=== PATIENT | female | born 1955 | race Caucasian/White ===

== ENCOUNTER → 2020-06-01 | Outpatient (CLI) | payer OTHER ==
--- NOTE | 2020-06-01 15:38 | REP ---
INDICATION: PAIN IN RIGHT KNEE. COMPARISON: None. TECHNIQUE: Five views FINDINGS: Medial, lateral and patellofemoral joint compartments are without narrowing. There is no suprapatellar joint effusion, fracture or loose body. Small marginal osteophytes at the medial and lateral joint margins involving the tibial plateau. IMPRESSION: Minimal degenerative changes without visible fracture, joint space narrowing, joint effusion or focal bone lesion. <Electronically signed by Jonyn Miner > 06/01/20 [id number]
== END ==
LOC: M ADAMS 09:52
DX: M25.561 Pain in right knee (principal)

== ENCOUNTER → 2020-09-12 | Outpatient (CLI) | payer OTHER ==
--- NOTE | 2020-09-12 15:56 | REP ---
INDICATION: ABN MAMMO RT BREAST,STEREOTACTIC BIOPSY. COMPARISON: None. TECHNIQUE: The procedure was performed under the general supervision of Dr. Agudelo. The risks and benefits of the procedure were explained to the patient and informed consent was obtained. The patient has a history of a new density in the inner aspect of the right breast near the 3 o'clock position seen on a previous mammogram dated 08/16/2020. A craniocaudal approach was utilized. The nodule was localized using stereotactic mammographic guidance. 1% Xylocaine was used as a local anesthetic. An 10 gauge, suction assisted Mammotome needle was inserted and 10 core biopsy samples were obtained. Specimen radiograph demonstrates the presence of calcifications to be within the specimen. A marker clip(HydroMARK shape 1) was placed at the biopsy site. The patient tolerated the procedure well and there were no immediate complications. After the appropriate amount of monitored convalescence, the patient was discharged from the department. FINDINGS: None IMPRESSION: Stereotactic right breast biopsy with marker clip placement (HydroMARK shape 1) <Electronically signed by Adrian Carter > 09/12/20 152 <Electronically signed by Josef Agudelo > 09/12/20 1711
[2020-09-12 16:49] VITALS: BP 138/76
--- NOTE | 2020-09-12 17:07 | REP ---
INDICATION: R92.8 ABN MAMMO RT BREAST,POST STEREOTACTIC BIOPSY. Marker clip placement views. COMPARISON: Comparison mammography 07/25/2020 and 08/16/2020. TECHNIQUE: Craniocaudal and mediolateral views of the right breast are obtained. FINDINGS: Craniocaudal and mediolateral views of the right breast demonstrate the needle biopsy marker clip in good position at the site where prior mammography showed small soft tissue nodule. There is some soft tissue density post biopsy. The nodule is not visible possibly obscured by the soft tissue edema. IMPRESSION: Marker clip in good position. <Electronically signed by Josef Agudelo > 09/12/20 1797
== END ==
LOC: M WHCPRO 11:45
PROVIDERS: ATTEND Surgery
DX: N60.11 Diffuse cystic mastopathy of right breast (principal); R92.8 Other abnormal and inconclusive findings on diagnostic imaging of breast

== ENCOUNTER → 2020-10-12 | Outpatient (CLI) | payer OTHER ==
--- NOTE | 2020-10-12 11:02 | REP ---
INDICATION: R92.8 ABN MAMMO/RIGHT. Patient is status post stereotactic needle biopsy for a nodular density medially position in the right breast on September 12, 2020, 1 month ago. Histologic result was not felt to be concordant with the mammographic findings. Short interval follow-up. COMPARISON: Comparison mammography and sonography August 16, 2020. Comparison mammography July 25, 2020 and June 28, 2019. Marker clip placement mammographic views are reviewed from 12 September 2020. TECHNIQUE: Routine views of the right breast are augmented by magnified focal spot-compression images and 3D tomography. Targeted right breast ultrasound is performed in the medial aspect. This mammogram was interpreted with the aid of an FDA-approved computer-aided detection system. FINDINGS: Scattered fibroglandular elements are noted. There is a nodular opacity adjacent to the marker clip in the medial aspect of the right breast at approximately 3 o'clock position. This appears more prominent than it did on the pre biopsy images of 16 August 2020. Margins are irregular. 10 x 12 x 15 mm today. previously 6 x 7 x 6 mm mammographically. Post biopsy marker clip placement views did show evidence of a hematoma which was arguable E larger than the density visible today. The findings are nonspecific. The Volpara volumetric breast density pattern is b. Targeted ultrasound: Targeted right breast sonography demonstrates a hypoechoic irregular area at 3 o'clock in the right breast 5 cm from the nipple measuring 16 x 7 x 8 mm. This is felt to account for the current mammographic opacity. I note that on pre biopsy ultrasound there was no identifiable ultrasound correlate to the mammographic finding. IMPRESSION: Nonspecific findings. Given that there has only been 1 month of elapsed time since the biopsy, the findings most likely represent residual post biopsy hematoma. It is difficult to exclude progressive enlargement of a nodule. Ultrasound-guided needle biopsy or ultrasound directed needle localization excisional biopsy could be considered since there is an ultrasound correlate to the mammographic opacity. Failing this, short interval follow-up mammographically and sonographically should continue. BI-RADS category is still felt to be best assigned as category 4 suspicious right breast imaging. This patient's [facility] lifetime breast cancer risk assessment score is 11.2%. RECOMMENDATION: Ultrasound-guided needle biopsy or localization directed excisional biopsy should be considered.. The patient letter being requested is M4. <Electronically signed by Josef Agudelo > 10/12/20 [id number]
== END ==
LOC: M WHC 08:56
PROVIDERS: ATTEND Surgery
DX: R92.8 Other abnormal and inconclusive findings on diagnostic imaging of breast (principal)
CPT/HCPCS: 76642; 77065; G0279

== ENCOUNTER → 2020-10-24 | Outpatient (CLI) | payer OTHER ==
[~2020-10-24] MED LIST: METO1TAB87 PO
--- NOTE | 2020-10-25 04:25 | REPPI ---
INDICATION: Z01.818 PRE OP EVALUATION COMPARISON: None. TECHNIQUE: PA and lateral. FINDINGS: The mediastinum and cardiac silhouette are normal. The lung english are clear and without acute consolidation, effusion, or pneumothorax. The skeletal structures are intact and normal. IMPRESSION: No acute cardiopulmonary process. <Electronically signed by Ricardo Short > 10/25/20 0428
== END ==
LOC: M PLAIMG 14:28
PROVIDERS: ATTEND Surgery
DX: Z01.818 Encounter for other preprocedural examination (principal)

== ENCOUNTER → 2020-10-26 | Outpatient (CLI) | payer OTHER | LOC: M LABSMTC 11:44 | PROVIDERS: ATTEND Anesthesiology | DX: Z01.818 Encounter for other preprocedural examination (principal); Z20.822 Contact with and (suspected) exposure to COVID-19 ==

== ENCOUNTER 2020-10-31 06:21 | Day surgery (SDC) | payer OTHER ==
[~2020-10-31] VITALS: Ht 157.5 cm; Wt 88.0 kg
[~2020-10-31 06:21] MED LIST changes: +HEPARIN SOD (PORCINE) 5000UNITS/ML 1ML VIAL/SYRINGE SQ ONE; +LIDOCAINE 1% MDV 20ML VIAL SQ PRN; +LR 1,000 ML IV ONE; +ceFAZolin SOD 2 GM in IV 1 EA IV ONE
[2020-10-31] MEDS ORDERED: BUPIVACAINE HCL 0.25% 10ML VIAL As Ordered ONE (07:13)
[2020-10-31] MEDS ORDERED: LIDOCAINE 1% MDV 20ML VIAL As Ordered ONE (07:13)
[2020-10-31] MEDS ORDERED: propofoL 200 MG/20 ML VIAL As Ordered ONE (07:18)
[2020-10-31] MEDS ORDERED: MIDAZOLAM INJ 2MG/2ML VIAL (J2250 PER 1MG) As Ordered ONE (07:18)
[2020-10-31] MEDS ORDERED: LIDOCAINE 2% 100MG/5ML SDV (FOR ANES.) As Ordered ONE (07:18)
[2020-10-31] MEDS ORDERED: ROCURONIUM BROMIDE 50 MG/5 ML VIAL As Ordered ONE (07:18)
[2020-10-31] MEDS ORDERED: fentaNYL 100 MCG/2 ML INJECTION (J3010) As Ordered ONE (07:18)
[2020-10-31] MEDS ORDERED: dexameTHASONE 4 MG/ML 1ML VIAL (J1100 PER 1MG) As Ordered ONE (07:44)
[2020-10-31] MEDS ORDERED: SUGAMMADEX SODIUM 500 MG/5 ML VIAL (BRIDION) As Ordered ONE (07:56)
[2020-10-31] MEDS ORDERED: METOCLOPRAMIDE INJ 10MG/2ML VIAL (J2765 PER 1) As Ordered ONE (07:56)
[2020-10-31] MEDS ORDERED: KETOROLAC 60MG 2ML VIAL As Ordered ONE (07:56)
[2020-10-31] MEDS ORDERED: ACETAMINOPHEN 1000MG 100ML IV BTL (OFIRMEV) (J0131 PER 10MG) As Ordered ONE (07:56)
[2020-10-31] MEDS ORDERED: ONDANSETRON 4MG/2ML VIAL As Ordered ONE (07:56)
[2020-10-31] MEDS ORDERED: PHENYLephrine 500MCG 5ML (100MCG/ML) SYRINGE As Ordered ONE (08:47)
[2020-10-31] MEDS ORDERED: ULTR50TA8 PO (09:20)
[2020-10-31] MEDS ORDERED: oxyCODONE 5MG TAB PO PRN (09:30)
[2020-10-31] MEDS ORDERED: LR 1,000 ML IV SCH (09:30)
[2020-10-31] MEDS ORDERED: fentaNYL 100 MCG/2 ML INJECTION (J3010) IV PRN (09:30)
[2020-10-31] MEDS ORDERED: ONDANSETRON 4MG/2ML VIAL IV PRN (09:30)
[2020-10-31 11:01] VITALS: BP 149/77
--- NOTE | 2020-10-31 12:10 | REP ---
INDICATION: RIGHT BREAST DISCORDANT PATHOLOGY RESULTS. COMPARISON: Mammogram and ultrasound 10/12/2020. TECHNIQUE: Ultrasound guidance provided for Dr. Lopez for wire localization of right breast nodule at 3 o'clock. FINDINGS: Ultrasound guidance provided for Dr. Lopez for wire localization of right breast nodule at 3 o'clock. IMPRESSION: Ultrasound guidance provided for Dr. Lopez for wire localization of right breast nodule at 3 o'clock. <Electronically signed by Zac Russo > 10/31/20 0187
--- NOTE | 2020-10-31 17:18 | REP ---
INDICATION: RIGHT BREAST DISCORDANT PATHOLOGY RESULTS. COMPARISON: 10/12/2020. TECHNIQUE: Two specimen radiographs performed. FINDINGS: Irregular nodule is seen in the specimen containing a biopsy clip. Closest margin of the nodule to the edge of the specimen is 6 mm. IMPRESSION: Irregular nodule is within the surgical specimen. RECOMMENDATION: Clinical follow-up. <Electronically signed by Zac Russo > 10/31/20 2859
--- NOTE | 2020-11-01 11:56 | ROOPDOC ---
[facility] Report Of Operation Report of Operation DATE OF PROCEDURE: 10/31/20 PREPROCEDURE DIAGNOSES: . POSTPROCEDURE DIAGNOSES: . PROCEDURE: . SURGEON: , PERSONAL LINES SALES EXECUTIVE: , ANESTHESIA: . ESTIMATED BLOOD LOSS: Approximately mL. COMPLICATIONS: . REMARKS: . PROCEDURE NOTE: . DESCRIPTION OF PROCEDURE: . JANAY LEDEZMA DO Nov 01, 2020 11:56
--- NOTE | 2020-11-02 21:35 | ROOPDOC ---
[facility] Report Of Operation Report of Operation DATE OF PROCEDURE: 10/31/20 PREPROCEDURE DIAGNOSES: right breast discordant pathology POSTPROCEDURE DIAGNOSES: right breast discordant pathology PROCEDURE: Right breast excisional biopsy with intraop wire placement SURGEON: Janay Ledezma ANESTHESIA: general ESTIMATED BLOOD LOSS: minimal COMPLICATIONS: none REMARKS: clip and the wire seen in the specimen DESCRIPTION OF PROCEDURE: INDICATIONS: Ms. Pratibha Niño is [id number] woman who was found to have a suspicious right breast nodule on screening mammogram. This was evaluated with US and no sonographic correlate was found. Stereotactic biopsy of the nodule was done by radiology and pathology results were benign. The results were discordant with the imaging per radiology review. Right breast excisional biopsy with intraoperative wire placement was recommended. Patient developed postbiopsy hematoma which made it difficult to assess the location of the possible nodule. She was medically cleared for surgery by her primary care doctor. Risks and possible complications of surgical procedure including bleeding, infection and injury to surrounding structures were explained to the patient and she wished to proceed. Consent was signed. My initials were placed on the operative site. Subcutaneous injection of 5000 units of heparin was done. DETAILS: Patient was taken to the operating room and placed on the operating room table. A sign in was called stating patients name, date of and the procedure to be done. Preoperative antibiotics were infused. Smooth induction of general anesthesia was done. Patients hands were extended on arm rests. Care was taken not to over extend the arms. Pillow was placed under the knees and a foam was placed under the heels. Sequential compression devices were placed and assured to function correctly. Procedure was started with right breast intraop wire localization. Appropriate time out was done and patients name, date of , and the procedure to be done were confirmed. Right breast was cleaned by me. Intraoperative ultrasound was used to confirm location of the Hydromark clip and hematoma. Location of the clip was marked on the skin as well. 21 G Kopans Breast Lesion Localization Needle was used to place 25 cm wire. The wire was placed next to the clip. The end of the wire was passed slightly distal to the clip. The images were captured confirming adequate placement of the localizing wire. Manager Of Learning assisted with the wire placement. Next, patients right breast and axilla were prepped and draped in the usual fashion. Care was taken not to displace the wire. Appropriate time out was done again prior second part of the procedure. Patients name, date of , and the procedure to be done were confirmed. Next, local anesthetic using 1% lidocaine and 0.25 % Marcaine 50/50 mix was injected at the site of planned periareolar incision. The incision was made with the scalpel. Subcutaneous skin flaps were raised and the guide wire was carefully pulled into the wound. Dissection was carries along the wire until the previously marked on the skin area of target lesion location was encountered. At this point, wider excision of the tissue surrounding the wire was done. The Hydromark clip was identified in the tissue with intraoperative hockey stick ultrasound probe. The end of the wire was identified with palpation. The excisional biopsy specimen was carefully removed from the breast keeping its proper orientation and moved to the back table where margins were marked with the surgical inking kit following the standard colors recommendations. Specimen was then placed on the grid and placed in [employer] Specimen Imaging System. The image revealed the wire and the Hydromark in the specimen. The specimen was labeled with patients name and right excisional biopsy and sent to pathology. Next, the wound was irrigated thoroughly and adequate hemostasis was assured. Additional local anesthetic was injected into surrounding tissues. space was approximated with 2-0 Vicryl. The dermis was closed with 3-0 Vicryl and skin was closed with 4-0 Monocryl. Surgical glue was placed over the incision. Patient emerged from the anesthesia without any problems. Fluffs were placed over the operative site and patients chest was wrapped snuggly in the ROBYN wrap. Sponge and instrument counts were done and were correct. Patient tolerated procedure well and was taken to recovery unit in stable condition. JANAY LEDEZMA DO Nov 02, 2020 21:35
== END 2020-10-31 11:34 | disposition home or self-care (01) ==
LOC: M SDC 06:21
PROVIDERS: ATTEND Surgery
DX: N60.11 Diffuse cystic mastopathy of right breast (principal); N64.1 Fat necrosis of breast; I10 Essential (primary) hypertension; Z80.3 Family history of malignant neoplasm of breast; Z79.899 Other long term (current) drug therapy
CPT/HCPCS: 19125; 36415; 76942; 86850; 86900; 86901; 88307; J0131; J0690; J1100; J1644; J1885; J2250; J2370; J2405; J2765; J3010

== ENCOUNTER → 2021-07-26 | Outpatient (CLI) | payer OTHER ==
[~2021-07-26] MED LIST changes: -HEPARIN SOD (PORCINE) 5000UNITS/ML 1ML VIAL/SYRINGE SQ ONE; -LIDOCAINE 1% MDV 20ML VIAL SQ PRN; -LR 1,000 ML IV ONE; +ULTR50TA8 PO; -ceFAZolin SOD 2 GM in IV 1 EA IV ONE
--- NOTE | 2021-07-26 10:24 | REPMRS ---
Patient History The patient states she had a clinical breast exam in November 2020. Family history of breast cancer in paternal grandmother. Benign radio exam breast specimen of the right breast, October 31, 2020. Benign stereotatic loc for ea lesion. of the right breast, September 12, 2020. Took hormonal contraceptives for 6 months. Tomosynthesis is performed. Volpara breast density is b. [facility] of [facility] 10.8%. No breast complaints today Patient signed the MRS sheet 1st vaccine 10/0471-Edfibc-hxge arm 2nd vaccine 10/25-left arm Patient states she has had a 25lb intentional weight loss in the past year Priors on PACS Patient Identification Verified Digital Woman Screen Mammo: July 26, 2021 - Exam #: [id number] Bilateral CC and MLO view(s) were taken. Technologist: Addie Oliveros, Technologist Prior study comparison: October 12, 2020, right breast diagnostic unilateral mammo performed at [facility]. FINDINGS: There are scattered fibroglandular densities. There has been no change in the appearance of the mammogram from the prior studies. There is a mild amount of residual fibroglandular tissue which is fairly symmetric. There is no interval development of dominant mass, architectural distortion, or clustered microcalcification suggestive of malignancy. Assessment: BI-RADS/ACR category 1 mammogram. Negative Mammogram. Recommendation Routine screening mammogram in 1 year (for women over age 40). This mammogram was interpreted with the aid of an FDA-approved computer-aided dectection system. Electronically Signed By: Zac Russo MD 07/26/21 1024
== END ==
LOC: M WHC 08:53
PROVIDERS: ATTEND Surgery
DX: R92.8 Other abnormal and inconclusive findings on diagnostic imaging of breast (principal); Z80.3 Family history of malignant neoplasm of breast

== ENCOUNTER → 2022-07-31 | Outpatient (CLI) | payer MEDICARE | LOC: M WHC 08:52 | PROVIDERS: ATTEND Nurse Practitioner Family | DX: Z12.31 Encounter for screening mammogram for malignant neoplasm of breast (principal) ==

== ENCOUNTER → 2022-10-14 | Outpatient (CLI) | payer MEDICARE | LOC: M LABSMTC 07:44 | PROVIDERS: ATTEND Anesthesiology | DX: Z01.818 Encounter for other preprocedural examination (principal); Z11.52 Encounter for screening for COVID-19 ==

== ENCOUNTER 2022-10-18 08:05 | Day surgery (SDC) | payer MEDICARE ==
[~2022-10-18] VITALS: Ht 157.5 cm; Wt 83.4 kg
[~2022-10-18 08:05] MED LIST changes: +NS 1,000 ML IV ONE
[2022-10-18] MEDS ORDERED: propofoL 200 MG/20 ML VIAL As Ordered ONE ×2 (08:46→09:11)
[2022-10-18 09:58] VITALS: BP 171/76
== END 2022-10-18 10:04 | disposition home or self-care (01) ==
LOC: M OPP 08:05
PROVIDERS: ATTEND Surgery
DX: Z12.11 Encounter for screening for malignant neoplasm of colon (principal); D12.4 Benign neoplasm of descending colon; K57.30 Diverticulosis of large intestine without perforation or abscess without bleeding; I10 Essential (primary) hypertension; Z79.899 Other long term (current) drug therapy

== ENCOUNTER → 2023-08-25 | Outpatient (REF) | payer MEDICARE ==
[~2023-08-25] MED LIST changes: -NS 1,000 ML IV ONE
== END ==
LOC: M SFHCWAGY 18:18
PROVIDERS: ATTEND Nurse Practitioner Family
DX: Z12.4 Encounter for screening for malignant neoplasm of cervix (principal)
CPT/HCPCS: 87624; G0123

== ENCOUNTER → 2023-08-25 | Outpatient (CLI) | payer MEDICARE | LOC: M WHC 13:37 | PROVIDERS: ATTEND Nurse Practitioner Family | DX: N63.20 Unspecified lump in the left breast, unspecified quadrant (principal) ==

== ENCOUNTER → 2023-09-02 | Outpatient (CLI) | payer MEDICARE | LOC: M WHC 13:19 | PROVIDERS: ATTEND Nurse Practitioner Family | DX: R92.2 Inconclusive mammogram (principal) | CPT/HCPCS: 76642; 77065; G0279 ==

== ENCOUNTER → 2024-09-03 | Outpatient (CLI) | payer MEDICARE | LOC: M WHC 10:02 | PROVIDERS: ATTEND Physician Assistant | DX: Z12.31 Encounter for screening mammogram for malignant neoplasm of breast (principal); R92.313 Mammographic fatty tissue density, bilateral breasts ==